=== PATIENT | female | born 1985 | race Caucasian/White ===

== ENCOUNTER → 2017-12-09 | Outpatient (CLI) | payer OTHER ==
[~2017-12-09] MED LIST: ALBUAER2 INH; CLC100 PO; OXYC5TAB PO; PRENTAB26 PO
== END | disposition home or self-care (01) ==
LOC: C.RC 13:33
PROVIDERS: ATTEND Family Medicine
DX: J45.909 Unspecified asthma, uncomplicated (principal)

== ENCOUNTER 2019-05-04 10:04 | Inpatient (IN) ==
[2019-05-04] MEDS ORDERED: PENICILLIN G POTASSIUM 3 MU in DEXTROSE 5% 100 ML IV PRN (10:36)
[2019-05-04] MEDS ORDERED: PENICILLIN G POTASSIUM 6 MU in DEXTROSE 5% 250 ML IV STA (10:36)
[2019-05-04] MEDS ORDERED: OXYTOCIN 30 UNITS/500 ML BAG IV PRN ×3 (10:36→18:58)
--- NOTE | 2019-05-04 10:38 | History & Physical Report ---
Date of Service May 04, 2019 Assessment & Plan (1) Supervision of normal intrauterine in multigravida: 33yo at 40.5 weeks GA. Early labor. 1. Fetus: Cat 1 2. Labor: Progressing. Oxytocin PRN 3. Vitals: Wnl 4. GBS+ / PCN (2) Carrier of group B Streptococcus: History of Present Illness Primary Care Provider: Salazar Sweet 33yo at 40.5 weeks GA. Presents in early labor. Denies VB, LOF. Good FM. complicated by GBS+, and Asthma. Rubella immune, A+ Allergies Allergy/AdvReac Type Severity Reaction Status Date / Time No Known Drug Allergies Allergy Verified 04/27/19 13:27 Home Medications Home Medications Medication Instructions Recorded Confirmed Type albuterol sulfate HFA 90 2 puff INHALATION USEASDIRECTD PRN 03/01/19 05/04/19 History mcg/actuation aerosol inhaler gm 1 tab PO DAILY 03/01/19 05/04/19 History vitamin,calcium,dcujvmyw-amdp-rxrvu acid tablet ferrous sulfate [iron] 1 mg PO Q OTHER DAY 05/04/19 05/04/19 History Patient History Medical History Asthma since 2011- no recent attacks History of fracture of wrist History of varicella Surgical History S/P wisdom tooth extraction S/P wrist surgery Family History Mother Deep vein thrombosis Dyslipidemia Fibroid Grandmother (Paternal) Breast cancer Father Malignant neoplasm of testis Prostate cancer Social History Preferred Language: [place] Communication Ability: Effective 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 Beliefs That Will Affect Care: None marital status: Current Living Situation: Spouse Feels Safe at Home: Yes Safety Concerns: Feels Safe At This Time Smoking Status: Never smoker Hx Alcohol Use: No Hx Substance Use: No Physical Exam Constitutional: WD/WN, vitals as above Psychiatric: A+Ox3, euthymic affect Genitourinary: OB Exam Abdomen: + vertex Manual OB Exam: + cervical dilatio n 3 cm, + cervical effacement 80% and + station -2 OB Exam Monitor Tracing: + external FHT monitor used, + external uterine monitor used, + category I and + normal FHT variability Results & Data Vital Signs (Past 12 Hours) Vital Signs Temp Pulse Resp BP 05/04/19 10:17 36.5 C 65 20 108/63 05/04/19 10:13 65 108/63 05/04/19 10:10 36.5 C 20
[2019-05-04 11:10] LABS: Hematocrit (blood only) 35.1 % (37-47); Hemoglobin 11.8 g/dL (12.0-16.0); Mean Corpuscular Volume 92.1 fL (80-100); Mean Platelet Volume 10.5 fL (7.4-10.4); Platelet Count 156 K/uL (130-400); RDW Coefficient of Variation 14.3 % (11.5-14.5); RDW Standard Deviation 47.9 fL (36.4-46.3); Red Blood Count 3.81 M/uL (4.2-5.4)
[2019-05-04 11:11] LABS: Mean Corpuscular Hgb Conc 33.6 g/dL (32-36)
[2019-05-04] MEDS: LACTATED RINGER'S 1,000 ML IV PRN ×2 (11:15→14:09)
[2019-05-04] MEDS ORDERED: ePHEDrine sulfate 50 MG/ML AMP ONE (11:27)
[2019-05-04] MEDS ORDERED: BUPIVACAINE 0.25% 30 ML VIAL ONE (11:27)
[2019-05-04] MEDS ORDERED: fentaNYL citrate 100 MCG/2 ML VIAL ONE (11:27)
[2019-05-04] MEDS ORDERED: fentaNYL 2MCG/ML ROPIV 1.25MG/ML 100 ML BAG EPI ONE (11:28)
--- NOTE | 2019-05-04 12:05 | Anesthesiology Consultation ---
Date of Service May 04, 2019 Assessment & Plan (1) Encounter for pre-operative examination: Chart Review Chart Review: Acceptable Risk for Surgery and Acceptable Risk for Labor Epidural History Height/Weight Height: 5 ft 4 in Weight: 72.575 kg Allergies Allergy/AdvReac Type Severity Reaction Status Date / Time No Known Drug Allergies Allergy Verified 04/27/19 13:27 Medications Home Medications Medication Instructions Recorded Confirmed Last Taken albuterol sulfate HFA 90 2 puff INHALATION USEASDIRECTD PRN 03/01/19 05/04/19 Unknown mcg/actuation aerosol inhaler gm 1 tab PO DAILY 03/01/19 05/04/19 04/30/19 14:00 vitamin,calcium,auummxww-ujlx-qlgwc acid tablet ferrous sulfate [iron] 1 mg PO Q OTHER DAY 05/04/19 05/04/19 04/27/19 08:00 Active Medications Generic Name Dose Route Start Last Admin Trade Name Freq PRN Reason Stop Dose Admin Lactated Ringer's 1,000 mls @ 125 mls/hr 05/04/19 10:36 05/04/19 11:15 Lr IV 05/06/19 10:35 999 mls/hr .Q8H PRN Administration L&D Protocol Protocol Past Medical History Medical History Asthma since 2011- no recent attacks History of fracture of wrist History of varicella Past Family History Family History Mother Deep vein thrombosis Dyslipidemia Fibroid Grandmother (Paternal) Breast cancer Father Malignant neoplasm of testis Prostate cancer Past Surgical History Surgical History S/P wisdom tooth extraction S/P wrist surgery Social History Smoking Status: Never smoker Hx Alcohol Use: No Hx Substance Use: No Physical Exam Vital Signs Last Vital Signs Temp 36.5 C 05/04/19 10:17 Pulse 65 05/04/19 10:17 Resp 20 05/04/19 10:17 BP 108/63 05/04/19 10:17 Testing Laboratory Results 05/04/19 10:47
[2019-05-04] MEDS ORDERED: NALOXONE HCL 1 MG in SODIUM CHLORIDE 0.9% 1000ML 1,000 ML IV PRN (12:50)
[2019-05-04] MEDS ORDERED: ONDANSETRON INJ 2 MG/ML 2 ML VIAL IV PRN (12:50)
[2019-05-04] MEDS ORDERED: ePHEDrine sulfate 50 MG/ML AMP IV PRN (12:50)
[2019-05-04] MEDS ORDERED: NALOXONE HCL 0.4 MG/1 ML VIAL/CARP IV PRN (12:50)
[2019-05-04] MEDS ORDERED: fentaNYL 2MCG/ML ROPIV 1.25MG/ML 100 ML BAG EPI PRN (12:50)
--- NOTE | 2019-05-04 13:36 | Labor Progress Brief Note ---
Date of Service May 04, 2019 Subjective Reason For Note: Routine Evaluation Assessment & Plan (1) Supervision of normal intrauterine in multigravida: 33yo at 40.5 weeks GA. Early labor. 1. Fetus: Cat 1 2. Labor: Progressing. Oxytocin PRN 3. Vitals: Wnl 4. GBS+ / PCN (2) Carrier of group B Streptococcus: Physical Exam Constitutional: WD/WN, vitals as above Psychiatric: A+Ox3, euthymic affect Genitourinary: Manual OB Exam: + cervical dilation 4 cm, + cervical effacement 80%, + station -2 and + amniotic fluid clear OB Exam Monitor Tracing: + external FHT monitor used, + external uterine monitor used, + category I and + normal FHT variability Results & Data Vital Signs (Past 12 Hours) Vital Signs Temp Pulse Resp BP Pulse Ox 05/04/19 13:31 81 119/74 05/04/19 13:28 70 98 05/04/19 13:23 64 98 05/04/19 13:18 65 98 05/04/19 13:13 69 110/65 99 05/04/19 13:09 65 109/67 05/04/19 13:08 68 99 05/04/19 13:03 65 110/67 99 05/04/19 12:58 68 106/64 99 05/04/19 12:56 63 112/69 05/04/19 12:54 66 117/73 05/04/19 12:53 68 98 05/04/19 12:52 68 112/70 05/04/19 12:48 68 110/68 98 05/04/19 12:45 67 121/65 05/04/19 12:43 77 100 05/04/19 12:40 75 94 05/04/19 12:38 70 100 05/04/19 12:33 71 100 05/04/19 12:28 67 100 05/04/19 12:23 65 108/55 L 97 05/04/19 10:17 36.5 C 65 20 108/63 05/04/19 10:13 65 108/63 05/04/19 10:10 36.5 C 20
[2019-05-04] MEDS ORDERED: ALBUTEROL HFA 8 GM INHALER INH PRN (13:45)
--- NOTE | 2019-05-04 18:54 | Anesthesia Procedure Note ---
Date of Service May 04, 2019 Anesthesia Post Epidural Note Vital Signs Vital Signs: Temp Pulse Resp BP Pulse Ox 36.7 C 78 20 106/62 100 05/04/19 17:06 05/04/19 18:43 05/04/19 15:02 05/04/19 18:00 05/04/19 18:43 Pain Intensity Bilateral Abdomen: Pain Intensity: 4 Notes Mental Status: alert / awake / arousable and participated in evaluation Nausea / Vomiting: adequately controlled Pain: adequately controlled Airway Patency, RR, SpO2: stable & adequate BP & HR: stable & adequate Hydration State: stable & adequate Neuraxial Anesthesia: was administered and sensory block is resolving Anesthetic Complications: no major complications apparent Epidural: Removed without complications and With tip intact
[2019-05-04] MEDS ORDERED: ACETAMINOPHEN 325 MG TAB PO PRN (18:58)
[2019-05-04] MEDS ORDERED: HYDROCORTISONE ACETATE 25 MG SUPP PR PRN (18:58)
[2019-05-04] MEDS ORDERED: SUPERCREAM 0.870% 15 GM JAR EXT PRN (18:58)
[2019-05-04] MEDS ORDERED: DIPHTHERIA/TETANUS/PERTUSSIS 0.5 ML SYR/VIAL IM ONE (18:58)
[2019-05-04] MEDS ORDERED: bisacodyL 10 MG SUPP PR PRN (18:58)
[2019-05-04] MEDS ORDERED: BENZOCAINE 20% AER SPR 82.5 GM CAN EXT PRN (18:58)
[2019-05-04] MEDS: IBUPROFEN 600 MG TAB PO PRN (20:27)
--- NOTE | 2019-05-04 20:27 | Delivery Summary ---
DATE OF OPERATION: 05/04/2019 PROCEDURE: Normal spontaneous vaginal delivery with second-degree perineal laceration and bilateral periurethral laceration repair. SURGEON: Tom Garcia MD. PREOPERATIVE DIAGNOSES: 1. Single intrauterine at 40+ weeks' gestational age. 2. Spontaneous labor. 3. GBS positive. 4. Asthma. POSTOPERATIVE DIAGNOSES: 1. Single intrauterine at 40+ weeks' gestational age. 2. Spontaneous labor. 3. GBS positive. 4. Asthma. 5. Status post delivery. ESTIMATED BLOOD LOSS: 400 mL. DRAINS: None. FLUIDS: Continuous lactated ringer. URINE OUTPUT: Approximately 400 mL via straight catheterization. COMPLICATIONS: None. FINDINGS: Viable male with weight pending and Apgars of 8 and 9 at 1 and 5 minutes respectively. INDICATIONS: Hollie is a 33-year-old G2, P1-0-0-1, admitted at 40 weeks 5 days gestational age in early labor. At initial evaluation, she was found to be 3 cm dilated, 80% effaced, -2 station. At that time, the patient was admitted as she was having very intense contractions. The patient received an epidural for anesthesia and upon reevaluation approximately 2 hours later was found to be 5 cm dilated. The patient was started on oxytocin per regular protocol as contractures noted to space and underwent artificial rupture of membranes for clear fluid. The patient continued to progress in labor to complete-complete +2, pushed over approximately 30 minutes to achieve delivery. DESCRIPTION OF PROCEDURE: The patient progressed to 10 cm dilated, 100% effaced, +2 station, pushed over intact perineum with epidural anesthesia and delivered a viable male infant with weight and Apgars as noted above. Head of the delivered in LAMINE position, restituted right transverse. Nuchal x2 was noted which was easily reduced. Body and shoulders quickly followed and was noted to be vigorous upon delivery and was delivered to the maternal abdomen. The cord was double clamped and cut. The cord blood was then obtained and then the cord was prepared for cord blood banking, which was done per protocol. After the collection was complete, the attention was turned to delivery of the placenta which was delivered intact with 3-vessel cord with gentle cord traction. On inspection of the perineum, vagina, and cervix, there was noted to be a second degree perineal laceration and bilateral periurethral lacerations. The second-degree laceration was repaired with 3-0 Vicryl in the traditional crown stitch. Bilateral periurethrals were reapproximated with 3-0 Vicryl on a single interrupted stitch. Needle, sponge and instrument counts were correct at the completion of the case. Both mother and were stable in the immediate post-delivery. I attest to the content of the Intraoperative Record and any orders documented therein. Any exception s are noted below.
[2019-05-04] MEDS: DOCUSATE SODIUM 100 MG CAP PO SCH (20:54)
[2019-05-05] MEDS ORDERED: ONDANSETRON INJ 2 MG/ML 2 ML VIAL IV PRN ×2 (00:59→01:01)
[2019-05-05] MEDS: IBUPROFEN 600 MG TAB PO PRN ×3 (04:54→18:17)
--- NOTE | 2019-05-05 06:19 | Obstetrical Progress Note ---
Date of Service May 05, 2019 Assessment & Plan (1) Encounter for care and examination after delivery: 33 yo F PPD #1 following vaginal delivery at 40.5weeks, doing well and without complaints this morning. - PPD #1 - Feels well, ambulating well, voiding well. - Will continue routine care. - Following d/c will have f/u in 6 weeks. - GBS carrier, received Abx. - Blood type A+, Rubella immune. - Went over discharge instructions and answered all patient questions. Becky Browne is a 33 yo female GBS carrier; PPD # 1 following vaginal delivery at 40.5weeks; doing well this AM; no abdominal cramping/pain; voiding well; tolerating fluids overnight, able to ambulate some within the room. Some persistent spotting this morning but improved from yesterday. Review of Systems Constitutional: denies fever, chills, sweats, headache Respiratory: denies SOB, difficulty breathing Cardiac: denies CP, chest palpitations, chest pressure Breast: denies breast pain : denies dysuria Physical Exam General: patient is alert and oriented, in NAD Cardiac: +S1/S2, no murmurs rubs or gallops Respiratory: lungs CTA b/l, anteriorly and posteriorly, no wheezes rales or rhonchi, no increased work of breathing, symmetric chest rise, no respiratory distress Abdomen: soft, NT, +bowel sounds Uterus: uterine fundus firm and palpable below the level of the umbilicus Lower Extremities: no LE edema or swelling, no deep calf pain, Nila's sign negative b/l Results & Data Vital Signs (Past 12 Hours) Vital Signs Temp Pulse Pulse Resp BP BP Pulse Ox 05/05/19 04:30 36.5 C 72 20 108/68 05/05/19 00:30 37.0 C 69 20 109/68 05/04/19 22:46 36.5 C 84 18 108/59 L 05/04/19 22:39 67 106/58 L 05/04/19 22:08 68 115/59 L 05/04/19 21:55 60 119/60 05/04/19 21:51 87 107/61 05/04/19 21:50 36.8 C 18 05/04/19 21:45 87 113/62 05/04/19 21:30 96 H 108/64 05/04/19 21:15 71 112/69 05/04/19 21:00 78 110/66 05/04/19 20:45 81 105/66 05/04/19 20:30 80 110/66 05/04/19 20:15 80 107/60 05/04/19 20:00 83 101/73 05/04/19 19:45 75 113/82 05/04/19 19:30 74 114/65 05/04/19 19:15 76 134/72 05/04/19 19:00 36.7 C 74 18 108/59 L 05/04/19 18:56 107 H 166/116 H 05/04/19 18:43 78 100 05/04/19 18:38 79 100 05/04/19 18:33 75 99 05/04/19 18:28 70 100 05/04/19 18:23 72 100 Laboratory Results Laboratory Results - last 24 hr 05/04/19 05/05/19 10:47 06:00 WBC 8.80 RBC 3.81 L Hgb 11.8 L 9.4 L Hct 35.1 L 27.7 L MCV 92.1 MCH 31.0 MCHC 33.6 RDW Std Deviation 47.9 H RDW Coeff of Emily 14.3 Plt Count 156 MPV 10.5 H Medications Administered Current Medications Acetaminophen (Tylenol) 650 mg PO Q6H PRN PRN Reason: Pain/GARCIA/Fever Stop: 06/03/19 18:57 Albuterol (Ventolin Hfa) 2 puffs INH Q6H PRN PRN Reason: Wheezing Stop: 06/03/19 13:44 Benzocaine (Dermoplast Pain Relieving [place]) 1 appln EXT PRN PRN PRN Reason: Perineal Discomfort Stop: 06/03/19 18:57 Last Admin: 05/04/19 20:28 Dose: 1 appln Documented by: Bisacodyl (Dulcolax) 10 mg MD DAILY PRN PRN Reason: No BM on 2nd post- day Stop: 06/03/19 18:57 Bisacodyl (Dulcolax) 5 mg PO 2000 CHANTELLE Stop: 05/05/19 20:01 Cocaine HCl (Supercream 0.870%) 1 gm EXT BID PRN PRN Reason: Hemorrhoidal Inflammation Stop: 05/18/19 18:57 Last Admin: 05/04/19 20:27 Dose: 1 appln Documented by: Docusate Sodium (Colace) 100 mg PO DAILY@08,21 [facility] Stop: 06/03/19 20:59 Last Admin: 05/04/19 20:54 Dose: 100 mg Documented by: Hydrocortisone (Anusol Hc) 25 mg MD BID PRN PRN Reason: Hemorrhoidal Inflammation Stop: 06/03/19 18:57 Oxytocin (Pitocin) 30 units in 500 mls @ 333.333 mls/hr IV .Q1H30M PRN; Protocol PRN Reason: Bleeding Control Stop: 06/03/19 18:57 Last Titration: 05/04/19 20:40 Dose: Infused Documented by: Ibuprofen (Motrin) 600 mg PO Q4H PRN PRN Reason: Pain/GARCIA/Cramping/Fever Stop: 06/03/19 18:57 Last Admin: 05/05/19 04:54 Dose: 600 mg Documented by: Ondansetron HCl (Zofran) 4 mg IV Q6H PRN PRN Reason: Nausea Stop: 06/04/19 00:58 Last Admin: 05/05/19 01:37 Dose: 4 mg Documented by: Prenat Multivit/Jerauld/Iron/Folic Ac ( Vitamin) 1 tab PO DAILY@08 [facility] Stop: 06/04/19 07:59 Resident Activity Tracking Resident Involvement: Resident Care Provided Care Provided: Adult Hospital Medicine
[2019-05-05 06:28] LABS: Hematocrit (blood only) 27.7 % (37-47); Hemoglobin 9.4 g/dL (12.0-16.0)
[2019-05-05] MEDS: PRENATAL VITAMIN 1 TAB PO SCH (07:57)
[2019-05-05] MEDS: DOCUSATE SODIUM 100 MG CAP PO SCH ×2 (07:57→21:06)
[2019-05-05] MEDS ORDERED: bisacodyL 5 MG TABEC PO SCH (20:00)
[2019-05-06] MEDS: IBUPROFEN 600 MG TAB PO PRN (04:37)
--- NOTE | 2019-05-06 06:24 | Obstetrical Progress Note ---
Date of Service May 06, 2019 Assessment & Plan (1) Encounter for care and examination after delivery: PPD#2 doing well. DC home today. Instructions discussed. Subjective Ambulation: ambulating normally Voiding: no voiding problems Diet Tolerance:: regular diet Lochia:: Moderate Review of Systems All systems reviewed & are unremarkable except as noted in HPI & below Physical Exam Constitutional WD/WN, vitals as above no acute distress Respiratory normal respiratory effort Cardiovascular Rate/Rhythm: regular rate and regular rhythm Gastrointestinal (Abdomen) Inspection/Auscultation: abdomen normal to inspection; abdomen not distended Percussion/Palpation: abdomen soft Genitourinary OB Exam Abdomen: + fundal height Fundus: + firm; not tender Results & Data Vital Signs (Past 12 Hours) Vital Signs Temp Pulse Pulse Pulse Resp BP BP 05/06/19 01:10 36.6 C 78 18 102/63 05/05/19 19:40 36.4 C L 83 83 20 105/66 105/66 Pulse Ox 05/06/19 01:10 97 05/05/19 19:40 97
[2019-05-06] MEDS: DOCUSATE SODIUM 100 MG CAP PO SCH (08:03)
[2019-05-06] MEDS: PRENATAL VITAMIN 1 TAB PO SCH (08:03)
[2019-05-06 08:58] VITALS: BP 95/60; TEMP 97.5; O2SAT 98
[2019-05-06 10:01] VITALS: PULSE 78
== END 2019-05-06 13:11 | disposition home or self-care (01) | DRG 807 ==
LOC: OPB 10:04 → 4S1 10:06 → 4S2 23:02